=== PATIENT | male | born 1950 | race Caucasian/White ===

== ENCOUNTER 2017-05-16 14:34 | Inpatient (IN) | payer OTHER ==
[~2017-05-16] VITALS: Ht 170.2 cm; Wt 78.1 kg
[2017-05-16 15:24] LABS: BASOPHILS ABSOLUTE AUTO 0.04 K/mm3 (0.00-0.23); BASOPHILS PERCENT AUTO 0 % (0-2); EOSINOPHILS ABSOLUTE AUTO 0.13 K/mm3 (0.00-0.68); EOSINOPHILS PERCENT AUTO 1 % (0-6); Hematocrit 42.7 % (37.0-53.0); IMMATURE GRAN ABSOLUTE AUTO 0.12 K/mm3 (0.00-0.10); IMMATURE GRAN PERCENT AUTO 1 % (0-1); LYMPHOCYTES ABSOLUTE AUTO 0.92 K/mm3 (0.84-5.20); LYMPHOCYTES PERCENT AUTO 8 % (21-46); MONOCYTES ABSOLUTE AUTO 1.64 K/mm3 (0.16-1.47); MONOCYTES PERCENT AUTO 14 % (4-13); Mean Corpuscular HGB 31.1 pg (26.0-34.0); Mean Corpuscular HGB Conc 35.1 g/dL (31.5-36.5); Mean Corpuscular Volume 88 fL (80-100); Mean Platelet Volume 10.5 fL (9.1-12.4); NEUTROPHILS ABSOLUTE AUTO 9.08 K/mm3 (1.96-9.15); NEUTROPHILS PERCENT AUTO 76 % (41-73); Platelet Count 367 K/mm3 (150-400); RDW Coefficient Variation 11.9 % (11.7-14.2); Red Blood Cell Count 4.83 M/mm3 (4.30-5.90); White Blood Cell Count 11.93 K/mm3 (4.00-11.30)
[2017-05-16 15:56] LABS: Alanine Aminotransfer (ALT/SGP 22 U/L (12-78); Albumin, Blood 2.8 g/dL (3.4-5.0); Albumin/Globulin Ratio 0.6 (0.8-1.8); Alk Phos 53 U/L (50-136); Anion Gap 20 mmol/L (6-16); Aspartate Aminotrans (AST/SGOT 15 U/L (12-37); Bilirubin, Total 0.4 mg/dL (0.1-1.0); Blood Urea Nitrogen 208 mg/dL (8-24); Bun/Creatinine Ratio 17.3 (12.0-20.0); CO2, Blood 20 mmol/L (21-32); Calcium, Blood 12.5 mg/dL (8.5-10.1); Chloride, Blood 89 mmol/L (98-108); Globulin, Blood 4.4 g/dL (2.2-4.0); Glomerular Filtration Rate 4 (60-); Glucose, Blood 222 mg/dL (70-99); Potassium, Blood 4.2 mmol/L (3.5-5.5); Sodium, Blood 129 mmol/L (136-145); Total Protein, Blood 7.2 g/dL (6.4-8.2)
[2017-05-16 16:19] LABS: Phosphorus, Blood 6.7 mg/dL (2.5-4.9)
[2017-05-16 16:50] LABS: Source, Urine Clean Catch
[2017-05-16] MEDS ORDERED: ALLO300 PO (17:06)
[2017-05-16] MEDS ORDERED: ATOR20 PO (17:06)
[2017-05-16] MEDS ORDERED: Actos30 MG PO (17:06)
[2017-05-16] MEDS ORDERED: ASPI81CH PO (17:06)
[2017-05-16] MEDS ORDERED: LOSA50 PO (17:07)
[2017-05-16] MEDS ORDERED: GLIP10 PO (17:07)
[2017-05-16] MEDS ORDERED: SITA100T2 PO (17:07)
[2017-05-16] MEDS ORDERED: METF500 PO (17:08)
[2017-05-16 17:16] LABS: Appearance, Urine Clear (Clear); Bilirubin, Urine Neg (Neg); Blood, Urine 3+ (Neg); Color, Urine Yellow (P-Yellow); Glucose Qualitative, Urine 2+ (Neg); Ketones, Urine Neg (Neg); Leukocyte Esterase, Urine 1+ (Neg); Nitrite, Urine Neg (Neg); Protein, Urine 2+ (Neg); Urobilinogen, Urine NORM (Normal)
[2017-05-16 17:24] LABS: Chloride, Urine, Random 32 mmol/L (55-125); Sodium, Urine, Random 36 mmol/L (20-110)
[2017-05-16 17:40] LABS: Red Blood Cells, Urine 0-2 /hpf (0-2); White Blood Cells, Urine 0-2 /hpf (0-5)
[2017-05-16 17:41] LABS: Amorphous Mod (0-Heavy); Bacteria Not Seen /hpf; Squamous Epithelial Cells Not Seen /hpf (Few)
[2017-05-17 06:06] LABS: Hematocrit 39.4 % (37.0-53.0)
[2017-05-17 06:37] LABS: Magnesium, Blood 1.8 mg/dL (1.6-2.4); Uric Acid, Blood 13.3 mg/dL (3.5-7.2)
[2017-05-17 06:42] LABS: Cortisol, AM 29.2 ug/dL (6.7-22.6)
[2017-05-17 06:53] LABS: CPK Creatine Kinase 87 U/L (39-308); Thyroid Stimulating Hormone 0.564 uIU/mL (0.360-4.800)
[2017-05-17 07:08] LABS: Albumin, Blood 2.6 g/dL (3.4-5.0); Anion Gap 17 mmol/L (6-16); Blood Urea Nitrogen 197 mg/dL (8-24); Bun/Creatinine Ratio 16.7 (12.0-20.0); CO2, Blood 23 mmol/L (21-32); Calcium, Blood 10.8 mg/dL (8.5-10.1); Chloride, Blood 94 mmol/L (98-108); Glomerular Filtration Rate 5 (60-); Glucose, Blood 150 mg/dL (70-99); Phosphorus, Blood 5.1 mg/dL (2.5-4.9); Potassium, Blood 3.7 mmol/L (3.5-5.5); Sodium, Blood 134 mmol/L (136-145)
[2017-05-18 08:00] LABS: ANA Negative (NEG); Myeloperoxidase Antibody <0.2 AI (<1.0)
[2017-05-18 08:06] LABS: Magnesium, Blood 1.9 mg/dL (1.6-2.4)
[2017-05-18 08:44] LABS: Albumin, Blood 2.6 g/dL (3.4-5.0); Anion Gap 14 mmol/L (6-16); CO2, Blood 24 mmol/L (21-32); Chloride, Blood 98 mmol/L (98-108); Glucose, Blood 171 mg/dL (70-99); Phosphorus, Blood 4.5 mg/dL (2.5-4.9); Potassium, Blood 3.3 mmol/L (3.5-5.5); Sodium, Blood 136 mmol/L (136-145)
[2017-05-18 08:46] LABS: Blood Urea Nitrogen 182 mg/dL (8-24); Bun/Creatinine Ratio 16.9 (12.0-20.0); Glomerular Filtration Rate 5 (60-)
[2017-05-18 08:49] LABS: Calcium, Blood 9.6 mg/dL (8.5-10.1)
[2017-05-18 12:35] LABS: Albumin 2.7 g/dL (3.3-4.8); Albumin 47.2 % (45.0-80.0); Protein, Total 5.8 g/dL (6.1-7.8)
[2017-05-18 17:27] LABS: Protein, Urine Quantitative 21.3 mg/dL (0.0-11.9)
[2017-05-18 18:58] LABS: ANCA <1:20
[2017-05-19 06:07] LABS: Hematocrit 37.2 % (37.0-53.0); Hemoglobin 12.7 g/dL (13.5-17.5)
[2017-05-19 06:37] LABS: Magnesium, Blood 1.8 mg/dL (1.6-2.4)
[2017-05-19 07:15] LABS: Albumin, Blood 2.7 g/dL (3.4-5.0); Anion Gap 13 mmol/L (6-16); Blood Urea Nitrogen 166 mg/dL (8-24); Bun/Creatinine Ratio 17.5 (12.0-20.0); CO2, Blood 21 mmol/L (21-32); Calcium, Blood 8.8 mg/dL (8.5-10.1); Chloride, Blood 104 mmol/L (98-108); Creatinine, Blood 9.49 mg/dL (0.60-1.20); Glomerular Filtration Rate 6 (60-); Glucose, Blood 176 mg/dL (70-99); Phosphorus, Blood 3.9 mg/dL (2.5-4.9); Potassium, Blood 3.5 mmol/L (3.5-5.5); Sodium, Blood 138 mmol/L (136-145)
[2017-05-19 08:31] LABS: Albumin, Blood 2.5 g/dL (3.4-5.0); Anion Gap 12 mmol/L (6-16); Blood Urea Nitrogen 159 mg/dL (8-24); CO2, Blood 23 mmol/L (21-32); Calcium, Blood 8.8 mg/dL (8.5-10.1); Chloride, Blood 104 mmol/L (98-108); Creatinine, Blood 9.36 mg/dL (0.60-1.20); Glomerular Filtration Rate 6 (60-); Glucose, Blood 171 mg/dL (70-99); Phosphorus, Blood 3.9 mg/dL (2.5-4.9); Potassium, Blood 3.4 mmol/L (3.5-5.5); Sodium, Blood 139 mmol/L (136-145)
[2017-05-20 05:43] LABS: Hematocrit 37.7 % (37.0-53.0)
[2017-05-20 06:30] LABS: Magnesium, Blood 1.8 mg/dL (1.6-2.4)
[2017-05-20 06:55] LABS: Albumin, Blood 2.6 g/dL (3.4-5.0); Anion Gap 14 mmol/L (6-16); Blood Urea Nitrogen 142 mg/dL (8-24); Bun/Creatinine Ratio 17.5 (12.0-20.0); CO2, Blood 20 mmol/L (21-32); Calcium, Blood 8.6 mg/dL (8.5-10.1); Chloride, Blood 104 mmol/L (98-108); Glomerular Filtration Rate 7 (60-); Glucose, Blood 177 mg/dL (70-99); Phosphorus, Blood 3.8 mg/dL (2.5-4.9); Potassium, Blood 3.4 mmol/L (3.5-5.5); Sodium, Blood 138 mmol/L (136-145)
[2017-05-21 05:16] LABS: Hematocrit 34.7 % (37.0-53.0); Hemoglobin 11.8 g/dL (13.5-17.5)
[2017-05-21 05:40] LABS: Magnesium, Blood 1.7 mg/dL (1.6-2.4)
[2017-05-21 05:41] LABS: Albumin, Blood 2.4 g/dL (3.4-5.0); Anion Gap 13 mmol/L (6-16); Blood Urea Nitrogen 120 mg/dL (8-24); Bun/Creatinine Ratio 16.9 (12.0-20.0); CO2, Blood 19 mmol/L (21-32); Calcium, Blood 7.9 mg/dL (8.5-10.1); Chloride, Blood 106 mmol/L (98-108); Glomerular Filtration Rate 8 (60-); Glucose, Blood 141 mg/dL (70-99); Phosphorus, Blood 3.8 mg/dL (2.5-4.9); Potassium, Blood 3.4 mmol/L (3.5-5.5); Sodium, Blood 138 mmol/L (136-145)
[2017-05-21] MEDS ORDERED: ACET325 PO (11:45)
[2017-05-21] MEDS ORDERED: CLON.1 PO (11:46)
[2017-05-21] MEDS ORDERED: AMLO5 PO (11:46)
[2017-05-21] MEDS ORDERED: INSDET100 SC (11:47)
[2017-05-21] MEDS ORDERED: M930 ML PO (11:48)
[2017-05-21] MEDS ORDERED: FERSU220EL PO (11:49)
[2017-11-14] MEDS ORDERED: Hair, Skin & N1 EACH PO (20:01)
[2017-11-16] MEDS ORDERED: INSR10I SC (13:50)
[2017-11-16] MEDS ORDERED: INS70/30I SC (13:51)
== END 2017-05-21 20:30 | disposition home health service (06) | DRG 682 ==
LOC: ER 14:34 → MEDS 15:54
PROVIDERS: Emergency Medicine; Internal Medicine Nephrology
DX: N17.9 Acute kidney failure, unspecified (principal); G92 Toxic encephalopathy; E87.2 Acidosis; E11.22 Type 2 diabetes mellitus with diabetic chronic kidney disease; E83.52 Hypercalcemia; E87.1 Hypo-osmolality and hyponatremia; N18.3 Chronic kidney disease, stage 3 (moderate); I12.9 Hypertensive chronic kidney disease with stage 1 through stage 4 chronic kidney disease, or unspecified chronic kidney disease; E78.5 Hyperlipidemia, unspecified; E86.9 Volume depletion, unspecified; E87.6 Hypokalemia; E88.09 Other disorders of plasma-protein metabolism, not elsewhere classified; D63.1 Anemia in chronic kidney disease; R80.9 Proteinuria, unspecified; R31.29 Other microscopic hematuria; M10.9 Gout, unspecified; E78.00 Pure hypercholesterolemia, unspecified; Z79.84 Long term (current) use of oral hypoglycemic drugs; Z79.82 Long term (current) use of aspirin; Z79.899 Other long term (current) drug therapy
CPT/HCPCS: 36415; 76770; 80053; 80069; 81001; 81050; 82436; 82530; 82533; 82550; 82947; 83516; 83690; 83735; 83970; 84100; 84156; 84165; 84166; 84300; 84443; 84550; 85014; 85018; 85025; 86038; 86256; 86334; 96360; 97110; 97161; 97530; 99285; G8978; G8979; J0360; J1650; J1815; J7030

== ENCOUNTER → 2017-05-16 | Outpatient (CLI) | payer OTHER ==
[~2017-05-16] MED LIST: ACET325 PO; ALLO300 PO; AMLO10 PO; AMLO5 PO; ASPI81CH PO; ATOR20 PO; ATOR40TA PO; Actos30 MG PO; CALC.25 PO; CLON.1 PO; FERSU220EL PO; FURO40 PO; Ferrous Sulfat325 M2 PO; Ferrous Sulfat325 MG PO; GLIP10 PO; Hair, Skin & N1 EACH PO; INS70/30I SC; INSDET100 SC; INSR10I SC; LEVEMIR FL100 UNIT/1 SC; LOSA50 PO; M930 ML PO; METF500 PO; Novolog Fl100 UNIT/1 INJ; POTA10T PO; POTCIT10; SITA100T2 PO
[2017-05-16 12:28] LABS: BASOPHILS ABSOLUTE AUTO 0.06 K/mm3 (0.00-0.23); BASOPHILS PERCENT AUTO 1 % (0-2); EOSINOPHILS ABSOLUTE AUTO 0.18 K/mm3 (0.00-0.68); EOSINOPHILS PERCENT AUTO 2 % (0-6); Hematocrit 44.5 % (37.0-53.0); IMMATURE GRAN ABSOLUTE AUTO 0.16 K/mm3 (0.00-0.10); IMMATURE GRAN PERCENT AUTO 1 % (0-1); LYMPHOCYTES PERCENT AUTO 8 % (21-46); MONOCYTES ABSOLUTE AUTO 1.41 K/mm3 (0.16-1.47); MONOCYTES PERCENT AUTO 12 % (4-13); Mean Corpuscular HGB 31.6 pg (26.0-34.0); Mean Corpuscular Volume 88 fL (80-100); Mean Platelet Volume 10.9 fL (9.1-12.4); NEUTROPHILS ABSOLUTE AUTO 8.63 K/mm3 (1.96-9.15); NEUTROPHILS PERCENT AUTO 76 % (41-73); Platelet Count 381 K/mm3 (150-400); RDW Coefficient Variation 12.2 % (11.7-14.2); RDW Standard Deviation 38.6 fL (35.1-46.3); Red Blood Cell Count 5.07 M/mm3 (4.30-5.90); White Blood Cell Count 11.34 K/mm3 (4.00-11.30)
[2017-05-16 13:14] LABS: Albumin, Blood 3.2 g/dL (3.4-5.0); Albumin/Globulin Ratio 0.9 (0.8-1.8); Bilirubin, Total 0.6 mg/dL (0.1-1.0); Globulin, Blood 3.6 g/dL (2.2-4.0); Potassium, Blood 4.5 mmol/L (3.5-5.5); Total Protein, Blood 6.8 g/dL (6.4-8.2)
[2017-05-16 13:24] LABS: Bun/Creatinine Ratio 16.4 (12.0-20.0)
[2017-05-16 13:26] LABS: Calcium, Blood 14.1 mg/dL (8.5-10.1); Creatinine, Blood 13.63 mg/dL (0.60-1.20)
== END | disposition home or self-care (01) ==
LOC: LAB EV 12:22
PROVIDERS: Physician Assistant
DX: E11.9 Type 2 diabetes mellitus without complications (principal)
CPT/HCPCS: 80053; 85025

== ENCOUNTER → 2017-05-22 | Outpatient (CLI) | payer OTHER ==
[2017-05-22 15:07] LABS: BASOPHILS ABSOLUTE AUTO 0.09 K/mm3 (0.00-0.23); BASOPHILS PERCENT AUTO 1 % (0-2); EOSINOPHILS ABSOLUTE AUTO 0.55 K/mm3 (0.00-0.68); EOSINOPHILS PERCENT AUTO 4 % (0-6); Hemoglobin 11.8 g/dL (13.5-17.5); IMMATURE GRAN ABSOLUTE AUTO 0.11 K/mm3 (0.00-0.10); IMMATURE GRAN PERCENT AUTO 1 % (0-1); LYMPHOCYTES ABSOLUTE AUTO 1.25 K/mm3 (0.84-5.20); LYMPHOCYTES PERCENT AUTO 9 % (21-46); MONOCYTES ABSOLUTE AUTO 1.01 K/mm3 (0.16-1.47); MONOCYTES PERCENT AUTO 7 % (4-13); Mean Corpuscular HGB 30.8 pg (26.0-34.0); Mean Corpuscular HGB Conc 34.7 g/dL (31.5-36.5); Mean Corpuscular Volume 89 fL (80-100); Mean Platelet Volume 10.9 fL (9.1-12.4); NEUTROPHILS ABSOLUTE AUTO 10.71 K/mm3 (1.96-9.15); NEUTROPHILS PERCENT AUTO 78 % (41-73); Platelet Count 277 K/mm3 (150-400); RDW Coefficient Variation 12.1 % (11.7-14.2); RDW Standard Deviation 38.9 fL (35.1-46.3); Red Blood Cell Count 3.83 M/mm3 (4.30-5.90); White Blood Cell Count 13.72 K/mm3 (4.00-11.30)
[2017-05-22 15:42] LABS: Bun/Creatinine Ratio 15.7 (12.0-20.0); Calcium, Blood 7.2 mg/dL (8.5-10.1); Creatinine, Blood 6.36 mg/dL (0.60-1.20); Potassium, Blood 3.6 mmol/L (3.5-5.5)
== END ==
LOC: OLS 13:59 → LAB SHORT 13:59
PROVIDERS: Internal Medicine
DX: S37.001A Unspecified injury of right kidney, initial encounter (principal); I10 Essential (primary) hypertension; E11.00 Type 2 diabetes mellitus with hyperosmolarity without nonketotic hyperglycemic-hyperosmolar coma (NKHHC); E78.5 Hyperlipidemia, unspecified
CPT/HCPCS: 36415; 80048; 85025

== ENCOUNTER → 2017-05-24 | Outpatient (CLI) | payer OTHER ==
[2017-05-24 14:55] LABS: BASOPHILS ABSOLUTE AUTO 0.13 K/mm3 (0.00-0.23); BASOPHILS PERCENT AUTO 1 % (0-2); EOSINOPHILS ABSOLUTE AUTO 0.43 K/mm3 (0.00-0.68); EOSINOPHILS PERCENT AUTO 3 % (0-6); Hematocrit 33.2 % (37.0-53.0); Hemoglobin 11.7 g/dL (13.5-17.5); IMMATURE GRAN PERCENT AUTO 1 % (0-1); LYMPHOCYTES ABSOLUTE AUTO 1.44 K/mm3 (0.84-5.20); LYMPHOCYTES PERCENT AUTO 10 % (21-46); MONOCYTES ABSOLUTE AUTO 1.16 K/mm3 (0.16-1.47); MONOCYTES PERCENT AUTO 8 % (4-13); Mean Corpuscular HGB 31.5 pg (26.0-34.0); Mean Corpuscular HGB Conc 35.2 g/dL (31.5-36.5); Mean Corpuscular Volume 89 fL (80-100); Mean Platelet Volume 10.8 fL (9.1-12.4); NEUTROPHILS ABSOLUTE AUTO 10.96 K/mm3 (1.96-9.15); NEUTROPHILS PERCENT AUTO 77 % (41-73); Platelet Count 293 K/mm3 (150-400); RDW Coefficient Variation 12.3 % (11.7-14.2); RDW Standard Deviation 40.4 fL (35.1-46.3); Red Blood Cell Count 3.72 M/mm3 (4.30-5.90); White Blood Cell Count 14.22 K/mm3 (4.00-11.30)
[2017-05-24 15:16] LABS: Albumin, Blood 2.7 g/dL (3.4-5.0); Albumin/Globulin Ratio 0.8 (0.8-1.8); Bilirubin, Total 0.4 mg/dL (0.1-1.0); Bun/Creatinine Ratio 14.9 (12.0-20.0); Calcium, Blood 6.7 mg/dL (8.5-10.1); Creatinine, Blood 5.9 mg/dL (0.60-1.20); Globulin, Blood 3.3 g/dL (2.2-4.0); Potassium, Blood 3.5 mmol/L (3.5-5.5)
== END | disposition home or self-care (01) ==
LOC: LAB 14:18
PROVIDERS: Internal Medicine
DX: S37.001A Unspecified injury of right kidney, initial encounter (principal); E11.00 Type 2 diabetes mellitus with hyperosmolarity without nonketotic hyperglycemic-hyperosmolar coma (NKHHC); I10 Essential (primary) hypertension
CPT/HCPCS: 80053; 85025

== ENCOUNTER → 2017-05-26 | Outpatient (CLI) | payer OTHER ==
[2017-05-26 14:37] LABS: Bun/Creatinine Ratio 14.8 (12.0-20.0); Calcium, Blood 6.3 mg/dL (8.5-10.1); Creatinine, Blood 4.33 mg/dL (0.60-1.20); Potassium, Blood 3.7 mmol/L (3.5-5.5)
[2017-05-26 15:34] LABS: BASOPHILS ABSOLUTE AUTO 0.11 K/mm3 (0.00-0.23); BASOPHILS PERCENT AUTO 1 % (0-2); EOSINOPHILS ABSOLUTE AUTO 0.39 K/mm3 (0.00-0.68); EOSINOPHILS PERCENT AUTO 3 % (0-6); Hematocrit 31.8 % (37.0-53.0); IMMATURE GRAN ABSOLUTE AUTO 0.07 K/mm3 (0.00-0.10); IMMATURE GRAN PERCENT AUTO 1 % (0-1); LYMPHOCYTES PERCENT AUTO 13 % (21-46); MONOCYTES ABSOLUTE AUTO 1.18 K/mm3 (0.16-1.47); MONOCYTES PERCENT AUTO 10 % (4-13); Mean Corpuscular HGB 31.1 pg (26.0-34.0); Mean Corpuscular HGB Conc 34.6 g/dL (31.5-36.5); Mean Corpuscular Volume 90 fL (80-100); Mean Platelet Volume 10.3 fL (9.1-12.4); NEUTROPHILS ABSOLUTE AUTO 8.89 K/mm3 (1.96-9.15); NEUTROPHILS PERCENT AUTO 73 % (41-73); Platelet Count 299 K/mm3 (150-400); RDW Coefficient Variation 12.5 % (11.7-14.2); RDW Standard Deviation 41.5 fL (35.1-46.3); Red Blood Cell Count 3.54 M/mm3 (4.30-5.90); White Blood Cell Count 12.24 K/mm3 (4.00-11.30)
== END | disposition home or self-care (01) ==
LOC: LAB 14:14
PROVIDERS: Family Medicine
DX: N17.9 Acute kidney failure, unspecified (principal)
CPT/HCPCS: 80048; 85025

== ENCOUNTER 2017-08-22 17:56 | Inpatient (IN) | payer OTHER ==
[~2017-08-22] VITALS: Ht 175.3 cm; Wt 81.5 kg
[~2017-08-22 17:56] MED LIST changes: -AMLO10 PO; -ATOR40TA PO; -CALC.25 PO; -FURO40 PO; -Ferrous Sulfat325 M2 PO; -Ferrous Sulfat325 MG PO; -Hair, Skin & N1 EACH PO; -INS70/30I SC; -INSR10I SC; -LEVEMIR FL100 UNIT/1 SC; -Novolog Fl100 UNIT/1 INJ; -POTA10T PO; -POTCIT10
[2017-08-22 18:48] LABS: BASOPHILS ABSOLUTE AUTO 0.02 K/mm3 (0.00-0.23); BASOPHILS PERCENT AUTO 0 % (0-2); EOSINOPHILS PERCENT AUTO 0 % (0-6); Hematocrit 37.9 % (37.0-53.0); Hemoglobin 13.5 g/dL (13.5-17.5); IMMATURE GRAN ABSOLUTE AUTO 0.13 K/mm3 (0.00-0.10); IMMATURE GRAN PERCENT AUTO 1 % (0-1); LYMPHOCYTES PERCENT AUTO 7 % (21-46); MONOCYTES ABSOLUTE AUTO 1.47 K/mm3 (0.16-1.47); MONOCYTES PERCENT AUTO 8 % (4-13); Mean Corpuscular HGB 30.8 pg (26.0-34.0); Mean Corpuscular HGB Conc 35.6 g/dL (31.5-36.5); Mean Corpuscular Volume 87 fL (80-100); Mean Platelet Volume 10.1 fL (9.1-12.4); NEUTROPHILS ABSOLUTE AUTO 14.64 K/mm3 (1.96-9.15); NEUTROPHILS PERCENT AUTO 83 % (41-73); Platelet Count 434 K/mm3 (150-400); RDW Coefficient Variation 12.2 % (11.7-14.2); Red Blood Cell Count 4.38 M/mm3 (4.30-5.90); White Blood Cell Count 17.56 K/mm3 (4.00-11.30)
[2017-08-22 20:00] LABS: Ethanol (Alcohol), Blood, Med <3 mg/dL
[2017-08-22 20:24] LABS: Source, Urine Clean Catch
[2017-08-22 20:28] LABS: Appearance, Urine Clear (Clear); Bilirubin, Urine Neg (Neg); Blood, Urine 3+ (Neg); Color, Urine Yellow (P-Yellow); Glucose Qualitative, Urine 4+ (Neg); Ketones, Urine 2+ (Neg); Leukocyte Esterase, Urine Neg (Neg); Nitrite, Urine Neg (Neg); Protein, Urine 3+ (Neg); Urobilinogen, Urine NORM (Normal)
[2017-08-22 20:29] LABS: Alanine Aminotransfer (ALT/SGP 18 U/L (12-78); Albumin/Globulin Ratio 0.9 (0.8-1.8); Alk Phos 69 U/L (50-136); Anion Gap 12 mmol/L (6-16); Aspartate Aminotrans (AST/SGOT 17 U/L (12-37); Bilirubin, Total 0.8 mg/dL (0.1-1.0); Blood Urea Nitrogen 74 mg/dL (8-24); CO2, Blood 29 mmol/L (21-32); Calcium, Blood 13.6 mg/dL (8.5-10.1); Chloride, Blood 89 mmol/L (98-108); Creatinine, Blood 3.53 mg/dL (0.60-1.20); Globulin, Blood 4.7 g/dL (2.2-4.0); Glomerular Filtration Rate 18 (60-); Glucose, Blood 531 mg/dL (70-99); Sodium, Blood 130 mmol/L (136-145); Total Protein, Blood 8.7 g/dL (6.4-8.2)
[2017-08-22 20:35] LABS: Bacteria Rare /hpf; Squamous Epithelial Cells Rare /hpf (Few)
[2017-08-22 22:34] LABS: Free Thyroxine 1.27 ng/dL (0.70-1.60)
[2017-08-22 22:37] LABS: Thyroid Stimulating Hormone 0.847 uIU/mL (0.360-4.800); Triiodothyronine, Free 2.22 pg/mL (2.18-3.98)
[2017-08-22] MEDS ORDERED: Ferrous Sulfat325 MG PO (23:40)
[2017-08-23 01:59] LABS: U Amphetamine Screen Not Detected; U Barbituate Screen Not Detected; U Benzodiazapine Screen Not Detected; U Buprenorphine Screen Not Detected; U Cannabinoids Screen Not Detected; U Cocaine Screen Not Detected; U Methadone Screen Not Detected; U Methamphetamine Screen Not Detected; U Opiates Screen Not Detected; U Oxycodone Screen Not Detected; U Phencyclidine Screen Not Detected; U Propoxyphene Screen Not Detected
[2017-08-23 05:06] LABS: BASOPHILS ABSOLUTE AUTO 0.07 K/mm3 (0.00-0.23); BASOPHILS PERCENT AUTO 0 % (0-2); EOSINOPHILS ABSOLUTE AUTO 0.03 K/mm3 (0.00-0.68); EOSINOPHILS PERCENT AUTO 0 % (0-6); Hematocrit 36.2 % (37.0-53.0); Hemoglobin 12.5 g/dL (13.5-17.5); IMMATURE GRAN ABSOLUTE AUTO 0.11 K/mm3 (0.00-0.10); IMMATURE GRAN PERCENT AUTO 1 % (0-1); LYMPHOCYTES ABSOLUTE AUTO 1.32 K/mm3 (0.84-5.20); LYMPHOCYTES PERCENT AUTO 6 % (21-46); MONOCYTES ABSOLUTE AUTO 2.48 K/mm3 (0.16-1.47); MONOCYTES PERCENT AUTO 12 % (4-13); Mean Corpuscular HGB 30.4 pg (26.0-34.0); Mean Corpuscular HGB Conc 34.5 g/dL (31.5-36.5); Mean Corpuscular Volume 88 fL (80-100); Mean Platelet Volume 10.3 fL (9.1-12.4); NEUTROPHILS ABSOLUTE AUTO 16.71 K/mm3 (1.96-9.15); NEUTROPHILS PERCENT AUTO 81 % (41-73); Platelet Count 423 K/mm3 (150-400); RDW Coefficient Variation 12.3 % (11.7-14.2); RDW Standard Deviation 39.6 fL (35.1-46.3); Red Blood Cell Count 4.11 M/mm3 (4.30-5.90); White Blood Cell Count 20.72 K/mm3 (4.00-11.30)
[2017-08-23 05:21] LABS: Albumin, Blood 3.6 g/dL (3.4-5.0); Anion Gap 11 mmol/L (6-16); Blood Urea Nitrogen 73 mg/dL (8-24); Bun/Creatinine Ratio 21.4 (12.0-20.0); CO2, Blood 29 mmol/L (21-32); Calcium, Blood 12.2 mg/dL (8.5-10.1); Chloride, Blood 97 mmol/L (98-108); Creatinine, Blood 3.41 mg/dL (0.60-1.20); Glomerular Filtration Rate 19 (60-); Glucose, Blood 308 mg/dL (70-99); Phosphorus, Blood 2.4 mg/dL (2.5-4.9); Potassium, Blood 3.4 mmol/L (3.5-5.5); Sodium, Blood 137 mmol/L (136-145)
[2017-08-23] MEDS ORDERED: FURO40 PO (14:05)
[2017-08-23] MEDS ORDERED: POTA10T PO (14:05)
[2017-08-23] MEDS ORDERED: CALC.25 PO (14:06)
[2017-08-24 03:58] LABS: BASOPHILS ABSOLUTE AUTO 0.05 K/mm3 (0.00-0.23); BASOPHILS PERCENT AUTO 0 % (0-2); EOSINOPHILS ABSOLUTE AUTO 0.06 K/mm3 (0.00-0.68); EOSINOPHILS PERCENT AUTO 0 % (0-6); Hemoglobin 10.9 g/dL (13.5-17.5); IMMATURE GRAN ABSOLUTE AUTO 0.07 K/mm3 (0.00-0.10); IMMATURE GRAN PERCENT AUTO 1 % (0-1); LYMPHOCYTES ABSOLUTE AUTO 1.55 K/mm3 (0.84-5.20); LYMPHOCYTES PERCENT AUTO 11 % (21-46); MONOCYTES ABSOLUTE AUTO 1.53 K/mm3 (0.16-1.47); MONOCYTES PERCENT AUTO 11 % (4-13); Mean Corpuscular HGB 30.2 pg (26.0-34.0); Mean Corpuscular HGB Conc 34.1 g/dL (31.5-36.5); Mean Corpuscular Volume 89 fL (80-100); NEUTROPHILS ABSOLUTE AUTO 10.82 K/mm3 (1.96-9.15); NEUTROPHILS PERCENT AUTO 77 % (41-73); Platelet Count 330 K/mm3 (150-400); RDW Coefficient Variation 12.4 % (11.7-14.2); RDW Standard Deviation 39.8 fL (35.1-46.3); Red Blood Cell Count 3.61 M/mm3 (4.30-5.90); White Blood Cell Count 14.08 K/mm3 (4.00-11.30)
[2017-08-24 04:21] LABS: CPK Creatine Kinase 93 U/L (39-308); Magnesium, Blood 1.4 mg/dL (1.6-2.4); Uric Acid, Blood 11.1 mg/dL (3.5-7.2)
[2017-08-24 04:25] LABS: Cortisol, AM 24.4 ug/dL (6.7-22.6); Thyroid Stimulating Hormone 0.512 uIU/mL (0.360-4.800)
[2017-08-24 04:37] LABS: Alanine Aminotransfer (ALT/SGP 12 U/L (12-78); Albumin, Blood 2.8 g/dL (3.4-5.0); Albumin/Globulin Ratio 0.8 (0.8-1.8); Alk Phos 46 U/L (50-136); Anion Gap 7 mmol/L (6-16); Aspartate Aminotrans (AST/SGOT 12 U/L (12-37); Bilirubin, Total 0.3 mg/dL (0.1-1.0); Blood Urea Nitrogen 69 mg/dL (8-24); Bun/Creatinine Ratio 20.7 (12.0-20.0); CO2, Blood 27 mmol/L (21-32); Chloride, Blood 106 mmol/L (98-108); Creatinine, Blood 3.34 mg/dL (0.60-1.20); Globulin, Blood 3.6 g/dL (2.2-4.0); Glomerular Filtration Rate 20 (60-); Glucose, Blood 199 mg/dL (70-99); Phosphorus, Blood 2.5 mg/dL (2.5-4.9); Potassium, Blood 3.3 mmol/L (3.5-5.5); Sodium, Blood 140 mmol/L (136-145)
[2017-08-24 04:39] LABS: Calcium, Blood 9.6 mg/dL (8.5-10.1); Total Protein, Blood 6.4 g/dL (6.4-8.2)
[2017-08-24 11:18] LABS: PSA, %Free 45.3 %; PSA, Free 0.391 ng/mL; Prostate Specific Antigen 0.864 ng/mL (0.000-4.000)
[2017-08-24 19:04] LABS: Protein, Urine Quantitative 44.3 mg/dL (0.0-11.9)
[2017-08-25 03:51] LABS: BASOPHILS ABSOLUTE AUTO 0.09 K/mm3 (0.00-0.23); BASOPHILS PERCENT AUTO 1 % (0-2); EOSINOPHILS ABSOLUTE AUTO 0.38 K/mm3 (0.00-0.68); EOSINOPHILS PERCENT AUTO 4 % (0-6); Hematocrit 30.2 % (37.0-53.0); Hemoglobin 10.4 g/dL (13.5-17.5); IMMATURE GRAN ABSOLUTE AUTO 0.04 K/mm3 (0.00-0.10); IMMATURE GRAN PERCENT AUTO 0 % (0-1); LYMPHOCYTES ABSOLUTE AUTO 2.12 K/mm3 (0.84-5.20); LYMPHOCYTES PERCENT AUTO 20 % (21-46); MONOCYTES ABSOLUTE AUTO 1.08 K/mm3 (0.16-1.47); MONOCYTES PERCENT AUTO 10 % (4-13); Mean Corpuscular HGB 30.4 pg (26.0-34.0); Mean Corpuscular HGB Conc 34.4 g/dL (31.5-36.5); Mean Corpuscular Volume 88 fL (80-100); Mean Platelet Volume 10.1 fL (9.1-12.4); NEUTROPHILS ABSOLUTE AUTO 6.87 K/mm3 (1.96-9.15); NEUTROPHILS PERCENT AUTO 65 % (41-73); Platelet Count 307 K/mm3 (150-400); RDW Coefficient Variation 12.4 % (11.7-14.2); RDW Standard Deviation 40.2 fL (35.1-46.3); Red Blood Cell Count 3.42 M/mm3 (4.30-5.90); White Blood Cell Count 10.58 K/mm3 (4.00-11.30)
[2017-08-25 04:09] LABS: Alanine Aminotransfer (ALT/SGP 13 U/L (12-78); Albumin, Blood 2.6 g/dL (3.4-5.0); Albumin/Globulin Ratio 0.7 (0.8-1.8); Alk Phos 42 U/L (50-136); Anion Gap 7 mmol/L (6-16); Aspartate Aminotrans (AST/SGOT 14 U/L (12-37); Bilirubin, Total 0.4 mg/dL (0.1-1.0); Blood Urea Nitrogen 63 mg/dL (8-24); Bun/Creatinine Ratio 19.7 (12.0-20.0); CO2, Blood 25 mmol/L (21-32); Calcium, Blood 8.5 mg/dL (8.5-10.1); Chloride, Blood 107 mmol/L (98-108); Creatinine, Blood 3.19 mg/dL (0.60-1.20); Globulin, Blood 3.5 g/dL (2.2-4.0); Glomerular Filtration Rate 21 (60-); Glucose, Blood 151 mg/dL (70-99); Magnesium, Blood 1.6 mg/dL (1.6-2.4); Phosphorus, Blood 2.7 mg/dL (2.5-4.9); Potassium, Blood 3.2 mmol/L (3.5-5.5); Sodium, Blood 139 mmol/L (136-145); Total Protein, Blood 6.1 g/dL (6.4-8.2)
[2017-08-26 04:44] LABS: Hematocrit 28.2 % (37.0-53.0); Hemoglobin 9.7 g/dL (13.5-17.5)
[2017-08-26 05:01] LABS: Albumin, Blood 2.5 g/dL (3.4-5.0); Anion Gap 10 mmol/L (6-16); Blood Urea Nitrogen 65 mg/dL (8-24); Bun/Creatinine Ratio 20.4 (12.0-20.0); CO2, Blood 22 mmol/L (21-32); Calcium, Blood 8.4 mg/dL (8.5-10.1); Chloride, Blood 107 mmol/L (98-108); Creatinine, Blood 3.19 mg/dL (0.60-1.20); Glomerular Filtration Rate 21 (60-); Glucose, Blood 164 mg/dL (70-99); Magnesium, Blood 1.6 mg/dL (1.6-2.4); Phosphorus, Blood 2.4 mg/dL (2.5-4.9); Potassium, Blood 3.5 mmol/L (3.5-5.5); Sodium, Blood 139 mmol/L (136-145)
[2017-08-26] MEDS ORDERED: ASPI81CH PO (13:59)
[2017-08-26] MEDS ORDERED: ATOR40TA PO (14:00)
[2017-08-26] MEDS ORDERED: Novolog Fl100 UNIT/1 INJ ×2 (14:04→14:07)
[2017-08-26] MEDS ORDERED: LEVEMIR FL100 UNIT/1 SC (14:05)
[2017-08-28 16:07] LABS: A/G RATIO 1.1 (0.7-1.7); ALBUMIN 3.1 g/dL (2.9-4.4); ALPHA-1-GLOBULIN 0.2 g/dL (0.0-0.4); BETA GLOBULIN 0.9 g/dL (0.7-1.3); GAMMA GLOBULIN 0.9 g/dL (0.4-1.8); IMMUNOGLOBULIN A, QN, SERUM 301 mg/dL (61-437); IMMUNOGLOBULIN G, QN, SERUM 709 mg/dL (700-1600); IMMUNOGLOBULIN M, QN, SERUM 31 mg/dL (20-172); M-SPIKE Not Observed g/dL (Not Observed); PROTEIN, TOTAL, SERUM 6.1 g/dL (6.0-8.5)
[2017-08-28 23:10] LABS: ANGIOTENSIN-CONVERTING ENZYME 31 U/L (14-82)
[2017-09-04 10:08] LABS: ANA DIRECT Negative (Negative); ANTIMYELOPEROXIDASE (MPO) ABS <9.0 U/mL (0.0-9.0); ANTIPROTEINASE 3 (PR-3) ABS <3.5 U/mL (0.0-3.5); ATYPICAL PANCA <1:20 titer (Neg:<1:20); CYTOPLASMIC (C-ANCA) <1:20 titer (Neg:<1:20); PERINUCLEAR (P-ANCA) <1:20 titer (Neg:<1:20)
== END 2017-08-26 14:35 | disposition home or self-care (01) | DRG 640 ==
LOC: ER 17:56 → MEDS 21:56 → ICUE 23:05 → MEDS 23:10 → ICUE 08-23 19:00 → MEDS 08-24 15:02 → ENPENDDIS 08-26 12:00 → MEDS 08-26 14:35
PROVIDERS: Emergency Medicine; Family Medicine; Internal Medicine Nephrology
DX: E83.52 Hypercalcemia (principal); G93.41 Metabolic encephalopathy; N39.0 Urinary tract infection, site not specified; N17.9 Acute kidney failure, unspecified; N18.4 Chronic kidney disease, stage 4 (severe); E11.9 Type 2 diabetes mellitus without complications; Z79.4 Long term (current) use of insulin; I12.9 Hypertensive chronic kidney disease with stage 1 through stage 4 chronic kidney disease, or unspecified chronic kidney disease; E11.22 Type 2 diabetes mellitus with diabetic chronic kidney disease; E87.6 Hypokalemia; E83.42 Hypomagnesemia; D63.1 Anemia in chronic kidney disease
CPT/HCPCS: 36415; 70450; 71046; 76770; 80053; 80069; 81001; 81050; 82140; 82164; 82306; 82533; 82550; 82784; 82947; 83036; 83605; 83690; 83735; 83970; 84100; 84153; 84154; 84156; 84165; 84439; 84443; 84481; 84550; 85014; 85018; 85025; 86038; 86334; 87040; 87086; 93005; 93010; 96361; 96374; 97116; 97161; 99285; G0480; G8978; G8979; G8980; J0360; J0630; J0696; J0881; J1815; J2405; J3475; J7030; J7050; J7060

== ENCOUNTER 2017-11-24 19:39 | Emergency (ER) | payer OTHER ==
[~2017-11-24] VITALS: Ht 170.2 cm; Wt 72.6 kg
[~2017-11-24 19:39] MED LIST changes: +ATOR40TA PO; +CALC.25 PO; +FURO40 PO; +Ferrous Sulfat325 MG PO; +Hair, Skin & N1 EACH PO; +INS70/30I SC; +INSR10I SC; +LEVEMIR FL100 UNIT/1 SC; +Novolog Fl100 UNIT/1 INJ; +POTA10T PO
[2017-11-24] MEDS ORDERED: CALC.25 PO (20:03)
[2017-11-24] MEDS ORDERED: Ferrous Sulfat325 M2 PO (20:04)
[2017-11-24] MEDS ORDERED: POTCIT10 (20:06)
[2017-11-24] MEDS ORDERED: AMLO10 PO (20:08)
[2017-11-24] MEDS ORDERED: FURO40 PO (20:09)
[2017-11-24 20:33] LABS: BASOPHILS PERCENT AUTO 1 % (0-2); EOSINOPHILS ABSOLUTE AUTO 0.28 K/mm3 (0.00-0.68); EOSINOPHILS PERCENT AUTO 3 % (0-6); Hematocrit 36.4 % (37.0-53.0); Hemoglobin 12.2 g/dL (13.5-17.5); IMMATURE GRAN ABSOLUTE AUTO 0.06 K/mm3 (0.00-0.10); IMMATURE GRAN PERCENT AUTO 1 % (0-1); LYMPHOCYTES ABSOLUTE AUTO 1.76 K/mm3 (0.84-5.20); LYMPHOCYTES PERCENT AUTO 16 % (21-46); MONOCYTES ABSOLUTE AUTO 1.07 K/mm3 (0.16-1.47); MONOCYTES PERCENT AUTO 9 % (4-13); Mean Corpuscular HGB 28.9 pg (26.0-34.0); Mean Corpuscular HGB Conc 33.5 g/dL (31.5-36.5); Mean Corpuscular Volume 86 fL (80-100); NEUTROPHILS ABSOLUTE AUTO 8.09 K/mm3 (1.96-9.15); NEUTROPHILS PERCENT AUTO 71 % (41-73); Platelet Count 278 K/mm3 (150-400); RDW Coefficient Variation 12.3 % (11.7-14.2); RDW Standard Deviation 38.9 fL (35.1-46.3); Red Blood Cell Count 4.22 M/mm3 (4.30-5.90); White Blood Cell Count 11.36 K/mm3 (4.00-11.30)
[2017-11-24 20:53] LABS: Albumin, Blood 3.2 g/dL (3.4-5.0); Albumin/Globulin Ratio 0.8 (0.8-1.8); Bilirubin, Total 0.2 mg/dL (0.1-1.0); Bun/Creatinine Ratio 28.2 (12.0-20.0); Calcium, Blood 8.6 mg/dL (8.5-10.1); Creatinine, Blood 2.55 mg/dL (0.60-1.20); Globulin, Blood 4.2 g/dL (2.2-4.0); Potassium, Blood 4.6 mmol/L (3.5-5.5); Total Protein, Blood 7.4 g/dL (6.4-8.2)
[2017-11-24 21:11] LABS: Source, Urine Clean Catch
[2017-11-24 21:13] LABS: Bilirubin, Urine Neg (Neg); Blood, Urine 2+ (Neg); Glucose Qualitative, Urine 4+ (Neg); Ketones, Urine Neg (Neg); Leukocyte Esterase, Urine Neg (Neg); Nitrite, Urine Neg (Neg); Protein, Urine 3+ (Neg); Urobilinogen, Urine NORM (Normal)
[2017-11-24 21:22] LABS: Appearance, Urine Clear (Clear); Color, Urine Yellow (P-Yellow)
[2017-11-24 21:23] LABS: Bacteria Few /hpf; Red Blood Cells, Urine 0-2 /hpf (0-2); Squamous Epithelial Cells Not Seen /hpf (Few); White Blood Cells, Urine 0-2 /hpf (0-5)
== END 2017-11-25 00:34 | disposition home or self-care (01) ==
LOC: ER 19:39
PROVIDERS: Emergency Medicine
DX: I12.9 Hypertensive chronic kidney disease with stage 1 through stage 4 chronic kidney disease, or unspecified chronic kidney disease (principal); E11.22 Type 2 diabetes mellitus with diabetic chronic kidney disease; N18.9 Chronic kidney disease, unspecified; E11.65 Type 2 diabetes mellitus with hyperglycemia; Z79.899 Other long term (current) drug therapy; Z79.82 Long term (current) use of aspirin; Z79.4 Long term (current) use of insulin
CPT/HCPCS: 36415; 80053; 81001; 82947; 85025; 93005; 93010; 96361; 96374; 99285-25; J1815; J7030

== ENCOUNTER 2017-12-18 11:36 | Emergency (ER) | payer OTHER ==
[~2017-12-18] VITALS: Ht 167.6 cm; Wt 74.8 kg
[~2017-12-18 11:36] MED LIST changes: +AMLO10 PO; +Ferrous Sulfat325 M2 PO; +POTCIT10
[2017-12-18 12:22] LABS: BASOPHILS ABSOLUTE AUTO 0.13 K/mm3 (0.00-0.23); BASOPHILS PERCENT AUTO 1 % (0-2); EOSINOPHILS ABSOLUTE AUTO 0.12 K/mm3 (0.00-0.68); EOSINOPHILS PERCENT AUTO 1 % (0-6); Hematocrit 39.4 % (37.0-53.0); Hemoglobin 13.3 g/dL (13.5-17.5); IMMATURE GRAN ABSOLUTE AUTO 0.08 K/mm3 (0.00-0.10); IMMATURE GRAN PERCENT AUTO 1 % (0-1); LYMPHOCYTES ABSOLUTE AUTO 1.35 K/mm3 (0.84-5.20); LYMPHOCYTES PERCENT AUTO 10 % (21-46); MONOCYTES ABSOLUTE AUTO 0.93 K/mm3 (0.16-1.47); MONOCYTES PERCENT AUTO 7 % (4-13); Mean Corpuscular HGB 29.3 pg (26.0-34.0); Mean Corpuscular HGB Conc 33.8 g/dL (31.5-36.5); Mean Corpuscular Volume 87 fL (80-100); Mean Platelet Volume 9.8 fL (9.1-12.4); NEUTROPHILS ABSOLUTE AUTO 11.65 K/mm3 (1.96-9.15); NEUTROPHILS PERCENT AUTO 82 % (41-73); Platelet Count 366 K/mm3 (150-400); RDW Coefficient Variation 12.6 % (11.7-14.2); RDW Standard Deviation 40.1 fL (35.1-46.3); Red Blood Cell Count 4.54 M/mm3 (4.30-5.90); White Blood Cell Count 14.26 K/mm3 (4.00-11.30)
[2017-12-18 12:42] LABS: Alanine Aminotransfer (ALT/SGP 47 U/L (12-78); Albumin/Globulin Ratio 0.8 (0.8-1.8); Alk Phos 74 U/L (50-136); Anion Gap 11 mmol/L (6-16); Aspartate Aminotrans (AST/SGOT 27 U/L (12-37); Bilirubin, Total 0.6 mg/dL (0.1-1.0); Blood Urea Nitrogen 45 mg/dL (8-24); Bun/Creatinine Ratio 19.2 (12.0-20.0); CO2, Blood 25 mmol/L (21-32); Calcium, Blood 12.4 mg/dL (8.5-10.1); Chloride, Blood 93 mmol/L (98-108); Creatinine, Blood 2.34 mg/dL (0.60-1.20); Globulin, Blood 4.9 g/dL (2.2-4.0); Glomerular Filtration Rate 29 (60-); Glucose, Blood 443 mg/dL (70-99); Potassium, Blood 4.7 mmol/L (3.5-5.5); Sodium, Blood 129 mmol/L (136-145); Total Protein, Blood 8.9 g/dL (6.4-8.2); Troponin I <0.015 ng/mL (0.000-0.040)
[2017-12-18 13:05] LABS: Calcium, Ionized (POC) 1.32 mmol/L (1.10-1.46); Chloride (POC) 96 mmol/L (98-108); Creatinine (POC) 2.3 mg/dL (0.8-1.3); Glucose (ISTAT POC) 443 mg/dL (70-99); Hemoglobin (POC) 13.3 g/dL (13.5-17.5); Potassium (POC) 4.8 mmol/L (3.5-5.5); Sodium (POC) 132 mmol/L (135-148); Total CO2 (POC) 27 mmol/L (21-32)
== END 2017-12-18 17:30 | disposition home or self-care (01) ==
LOC: ER 11:36
PROVIDERS: Emergency Medicine
DX: I10 Essential (primary) hypertension (principal); E11.9 Type 2 diabetes mellitus without complications; Z79.899 Other long term (current) drug therapy; Z79.82 Long term (current) use of aspirin; Z79.4 Long term (current) use of insulin
CPT/HCPCS: 36415; 74022; 80047; 80053; 82947; 83690; 84484; 85014; 85025; 93005; 93010; 96361; 96374; 99284-25; J2405; J7030

== ENCOUNTER 2018-04-17 14:50 | Inpatient (IN) | payer OTHER ==
[~2018-04-17] VITALS: Ht 170.2 cm; Wt 74.8 kg
--- NOTE | 2018-04-17 15:55 | NUR ---
PATIENT ARRIVES ABOUT 1500 VIA W/C. IV PLACED WITH LAB DRAW FOR KANCHAN. PATIENT HAS DIFFICULTY CONTROLLING MOVEMENT OF RT ARM. TOUCHES NOSE AFTER THIRD TRY WITH RT ARM. DRAFTER DETAIL FAIRLY EQUAL AND IS LEFT HAND DOMINANT. APEEARS TO HAVE TO THINK FOR AWHILE BEFORE ANSWERING QUESTIONS. DR. KYLE NOTIFIED OF PATIENT ROOM AND HE WILL WRITE ORDERS. RT ARM DRIFT. UNSTEADY ON FEET. WILL CONTINUE TO MONITOR.
--- NOTE | 2018-04-17 16:39 | NUR ---
PATIENT SLEEPING WITH TV ON. WAITING FOR .
[2018-04-17] MEDS ORDERED: TRADJENTA5 MG PO (16:47)
[2018-04-17] MEDS ORDERED: BASAGLAR K100 UNIT/1 SC (16:48)
[2018-04-17 17:26] LABS: BASOPHILS ABSOLUTE AUTO 0.17 K/mm3 (0.00-0.23); BASOPHILS PERCENT AUTO 1 % (0-2); EOSINOPHILS ABSOLUTE AUTO 0.35 K/mm3 (0.00-0.68); EOSINOPHILS PERCENT AUTO 3 % (0-6); Hematocrit 38.9 % (37.0-53.0); Hemoglobin 13.4 g/dL (13.5-17.5); IMMATURE GRAN ABSOLUTE AUTO 0.06 K/mm3 (0.00-0.10); IMMATURE GRAN PERCENT AUTO 1 % (0-1); LYMPHOCYTES ABSOLUTE AUTO 1.88 K/mm3 (0.84-5.20); LYMPHOCYTES PERCENT AUTO 15 % (21-46); MONOCYTES ABSOLUTE AUTO 1.14 K/mm3 (0.16-1.47); MONOCYTES PERCENT AUTO 9 % (4-13); Mean Corpuscular HGB 31.4 pg (26.0-34.0); Mean Corpuscular HGB Conc 34.4 g/dL (31.5-36.5); Mean Corpuscular Volume 91 fL (80-100); Mean Platelet Volume 10.6 fL (9.1-12.4); NEUTROPHILS ABSOLUTE AUTO 8.62 K/mm3 (1.96-9.15); NEUTROPHILS PERCENT AUTO 71 % (41-73); Platelet Count 346 K/mm3 (150-400); RDW Coefficient Variation 11.9 % (11.7-14.2); RDW Standard Deviation 39.7 fL (35.1-46.3); Red Blood Cell Count 4.27 M/mm3 (4.30-5.90); White Blood Cell Count 12.22 K/mm3 (4.00-11.30)
[2018-04-17 17:42] LABS: C-REACTIVE PROTEIN, EXT RANGE 0.55 mg/dL (0.000-0.300)
[2018-04-17 17:53] LABS: Albumin, Blood 3.9 g/dL (3.4-5.0); Albumin/Globulin Ratio 0.9 (0.8-1.8); Bilirubin, Total 0.4 mg/dL (0.1-1.0); Bun/Creatinine Ratio 19.8 (12.0-20.0); Creatinine, Blood 2.37 mg/dL (0.60-1.20); Globulin, Blood 4.4 g/dL (2.2-4.0); Potassium, Blood 4.3 mmol/L (3.5-5.5); Total Protein, Blood 8.3 g/dL (6.4-8.2)
--- NOTE | 2018-04-17 18:31 | NUR ---
PATIENT ALERT AND ORIENTED. DID NOT SEE RT SIDED FACIAL DROOP, BUT WHEN PATIENT STICKS OUT TONGUE APPEARS TO DEVIATE TO RT. PATIENT HAS HARD TIME HOLDING TONGUE STILL. PUSH/PULL FEET APPEAR EQUAL. 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 PATIENT HAS DIFFICULT TIME HOLDING RT ARM STILL. AND SAW PATIENT. BED ALARM ON AND PATIENT IS AWARE. BED IN LOW POSITION. WILL CONTINUE TO MONITOR.
--- NOTE | 2018-04-18 05:08 | NUR ---
SHIFT SUMMARY PT ADMITTED FOR CVA WITH R SIDE JENNIFFER-PARESIS. FULL CODE. ADA-PUREE DIET WITH CBG AT AND HAS. PT IS AWAITING AN ST EVAL AND BREAKFAST IS CHANGED IN ORDERS TO SOFT-BITE SIZED WHICH MAY NEED CHANGED DEPENDING OF EVAL RESULTS AND/OR ABILITY TO PERFORM EVAL PRIOR TO TRAY COMING FOR PT. TELE-NSR AT A RATE OF 85 PER SENIOR CORPORATE RECRUITER. LOVENOX FOR DVT. NS AT 150 MLS/HR X1 THEN 100 MLS/HR X1. 20 G IV TO L FA. WOUND TO L BUTTOCK IS SCAB CALDERON WITH REDNESS NOTED TO SURROUNDING BUTTOCKS. PT PRESENTED TO [facility] AFTER NOTICING THAT HE WAS HAVING DIFFICULTY EXPRESSING HIMSELF AND CORDINATING THE R SIDE OF HIS BODY. THE PT HAS NO FAMILY IN TOWN AND DROVE HIMSELF TO URGENT CARE SO HIS CAR REMAINS AT [facility] PER REPORT. 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 PT ALSO NOTED TO HAVE R FACIAL DROOP WHICH PERSISTS HERE NOW. THE PT LIVES AT HOME ALONE AND WAS NOT SAFE TO RETURN AT THIS TIME, WHICH IS PART OF THE REASON FOR ADMIT. PT TOOK 1 SMALL MEDICATION SO FAR THIS SHIFT, ADMINISTERED WITH APPLESAUCE AND PT APPEARED TO TOLLERATED WELL. EVALUATED ABILITY TO SWALLOW WITH LATE DINNER TRAY AND PT APPEARED TO PRESENT NO DIFFICULTY WITH PUREE FOODS. PT HAS APPEARED TO SLEEP COMFORTABLY MOST OF THE NIGHT WITH NO APPARENT SIGNS OF ACUTE DISTRESS. ABLE TO MAKE NEEDS KNOWN AND CALL LIGHT IN REACH.
[2018-04-18 05:39] LABS: Bun/Creatinine Ratio 19.9 (12.0-20.0); Creatinine, Blood 2.41 mg/dL (0.60-1.20); Potassium, Blood 4.5 mmol/L (3.5-5.5)
--- NOTE | 2018-04-18 07:26 | NUR ---
CAN NOT REALLY TELL IF RT SIDED FACIAL DROOP. TONGUE DOES NOT DEVIATE. RT YEAST WASHER LITTLE WEAKER THAN LEFT. CAN TOUCH NOSE W/RT HAND W/ EYES CLOSED. CAN LIFT LEGS ONE AT A TIME FROM BED WHILE LYING DOWN, BUT STS RT LEG IS HARDER TO DO. EQUAL PUSH, PULL. NON SLURRED SPEECH, BUT WORDS SOUND "THICK TONGUED". PATIENT SLOW RESPOND HE HAS TO "THINK ABOUT WORDS." WILL CONTINUE TO MONITOR.
--- NOTE | 2018-04-18 10:25 | NUR ---
NOTIFIED PATIENT SEMI RESPONSIVE. DOES NOT RESPOND TO HARD STERNAL RUB. RESPOND TO LOUD COMMANDS. V.S. GOOD. BLD SUGAR OK, UNDER 400. MRI SCHEDULED FOR ABOUT 1030. P.T. AND O.T. WORKED W/PATIENT THIS A.M. AND POSSIBLY OVER WORKED. NO NEW ORDERS.
--- NOTE | 2018-04-18 11:00 | NUR ---
PATIENT MOVED BACK TO BED. RESPONDS TO VOICE. DOES NOT KNOW WHAT BUILDING HE IS IN. KNOWS HE LIVES IN [place]. DOES NOT DO CONSTANT YARDER ENGINEER WITH EITHER HAND WHEN TOLD TO SQUEEZE MY FINGERS AND HOLD IT. CAN NOT SMILE. WHEN ASKED TO STICK TONGUE OUT STRAIGHT DEVIATES TO RT THEN TO LEFT. BOTH ARMS DRIFT WHEN HOLDING OUT STRAIGHT. IS ABLE TO TOUCH NOSE WITH LEFT HAND PRETTY EASILY, BUT TAKES A LITTLE MORE CONCENTRATION WITH RT BUT DOES IT FIRST TRY. MONITOR ON AND SR PER TECH. WILL CONTINUE TO MONITOR.
--- NOTE | 2018-04-18 11:09 | NUR ---
LEFT MESSAGE ON VOICE MAIL COULD NOT DO MRI PATIENT BECAME COMBATIVE WHEN MACHINE STARTED UP AND PATIENT MORE CONFUSED AT THIS TIME.
--- NOTE | 2018-04-18 13:11 | NUR ---
MRI REFUSED TO DO TEST WITHOUT MEDICATION WHEN THEY ATTEMPTED TO DO MRI AT 1100 PATIENT WAS BANGING AGAINST TUBE WHEN MACHINE WAS TURNED ON. NOTIFIED AND ORDERS 1/2 MG ATIVAN IV ONE TIME.
--- NOTE | 2018-04-18 13:41 | NUR ---
RN WATCHING PATIENT WHILE ON BREAK STS PATIENT HAS BEEN TRYING TO GET UP. WHEN THIS RN GOES IN PATIENT WITH LEGS ON SIDE OF BED. STS "DON'T KNOW WHY " WHEN ASKED WHY IS HE TRYING TO GET UP.WHEN PATIENT LAYS BACK DOWN AND SHUTS EYES APPEARS TO HAVE DEFINATE RT SIDED DROOP.
--- NOTE | 2018-04-18 15:10 | NUR ---
TALKED TO ABOUT PATIENT, MRI CANCELLED ORDER PATIENT ALMOST BROKE EQUIPMENT AND WAS VERY COMBATIVE, WRIST RESTRAINTS AND SPRING ON AND PATIENT COMBATIVE. CBG 163. 160/119-100. SATS 97%. ORDER FOR RESTRAINTS RECEIVED. LAB ORDER BMP. MD WILL THINK ABOUT OTHER ORDERS SUCH HALDOL IV. PATIENT TRANSFER TO SPECIAL CARE UNIT.
--- NOTE | 2018-04-18 15:45 | NUR ---
REPORT GIVEN TO SAEID LEBRON AND PATIENT MOVED TO ROOM 350. LAB DRAWN.
[2018-04-18 15:49] LABS: Bun/Creatinine Ratio 19.8 (12.0-20.0); Creatinine, Blood 2.47 mg/dL (0.60-1.20); Potassium, Blood 3.7 mmol/L (3.5-5.5)
--- NOTE | 2018-04-18 18:36 | NUR ---
SUMMARY PT TRANSFER TO SCU @ 1530 FROM RM 308. HE IS DROWSY/SLEEPY ON ARRIVAL TO . IN SPRING & WRIST RESTRAINTS. REPORT THAT HE HAD BEEN GETTING UP W/O ASSIST, HIGH FALL RISK D/T R SIDED DEFICITS, DX CVA, HITTING STAFF. CT HEAD WAS NEGATIVE, DR KYLE WANTED MRI TO CONFIRM DX HOWEVER PT WAS UNABLE TO TOLERATE INSPITE OF SEDATIVES. @ THIS TIME PT AROUSES TO VERBAL/NAME. HE SPEAKS IN COHERENT PHRASES HOWEVER REPEATS HIMSELF OVER & OVER. STATE NO PAIN, NO N/T. TORCH SOLDERER ARE STRONG BILAT, HE DOES NOT FOLLOW ALL COMMANDS @ THIS TIME D/T DROWSINESS, DIFFICULT TO COMPLETE NEURO EVAL. PT VERBALLY STATE HE WILL NOT HIT STAFF, WILL MX IN ATTEMPT TO D/C RESTRAINTS. BLOOD SUGAR 184, S/S & SCEDULED W MEALS INSULIN HELD D/T NPO STATUS. PT BROTHER ROB CALL FROM [place], UPDATED ON EVENT/TX, STATE HE WILL DRIVE DOWN TOMORROW.
--- NOTE | 2018-04-19 04:23 | NUR ---
SHIFT SUMMARY PT DROWSY AT START OF SHIFT. SLEPT WELL FOR SEVERAL HOURS. ONCE AWAKE PT VERY AGITATED. VERY UPSET ABOUT HAVING RESTRAINTS ON. ATTEMPTED TO TRIAL SEVERAL TIMES REMOVING THE WRIST RESTRAINTS AND PT PULLING OFF SPRING, ATTEMPTING TO GET OUT OF BED, AND PULLING OFF TELEMETRY UNIT. PT PULLING SO HARD ON SPRING VEST THAT FABRIC IS BEGINNING THE RIP. MEDICATED FIRST W/ 1 MG HALDOL ORDERED. MEDICATION HAD NO EFFECT ON PT. NOTIFIED DR. APODACA, NIGHTTIME HOSPITALIST AND GOT A ONE TIME DOSE FOR 1 MG IV ATIVAN. PT FINALLY ABLE TO CALM DOWN AND SLEEP AFTER ATIVAN WAS GIVEN. TELE READING SINUS TACH 101 PT CONTINENT/INCONTINENT THIS EVENING. USED THE URINAL SEVERAL TIMES. PT SLEEPING AT THIS TIME. VSS. WILL CONTINUE TO MONITOR.
[2018-04-19 05:23] LABS: Bun/Creatinine Ratio 19.9 (12.0-20.0); Calcium, Blood 9.5 mg/dL (8.5-10.1); Creatinine, Blood 2.41 mg/dL (0.60-1.20); Potassium, Blood 3.7 mmol/L (3.5-5.5)
--- NOTE | 2018-04-19 11:31 | NUR ---
AM BLOOD SUGAR LOW AT 74. DID NOT EAT MUCH. NO INSULIN GIVEN. NOON BLOOD SUGAR LOWER AT 64. PT STILL TALKING AND SWALLOWING. GAVE HONEY PACKET, APPLE JUICE. NOW WORKING ON ENSURE FROZEN YOGURT. WILL FOLLOW.
--- NOTE | 2018-04-19 17:20 | NUR ---
PT PLEASANTLY CONFUSED. ABLE TO TALK ABOUT SELF AND PAST WORK AT [employer]. DENIES CHILDREN. SHORT MARRIAGE. H/R REG, NO MURMER NOTED. TELE REMOVED PER DR Rom LEUNG. LUNGS CLEAR, RESP EASY, UNLABORED. ON R/A. BT X4 LAST BM UNKNOWN BY PT. IN ATTENDS. ALSO IN POSY VEST FOR SAFETY. PULLING AT IV LINES. AND ATTEMPTING TO GET OUT OF BED. HIGH FALL RISK CANNOT FOLLOW DIRECTIONS. FORGETS INSTRUCTION. TALKING BROKEN THOUGHTS, SOME SENSE, SOME NONSENSE. ALSO IN WRIST RESTRAINTS FOR SAFETY. ARMS AND LEGS WEAK, MORE ON RT. ARMS MUCH DIFFICULTY TO TOUCH HEAD, NOSE, KNEES. GROSS MOTOR CONTROL. BUT EVENTUALLY GETS TO TOUCH INSTRUCTED. DR Rom LEUNG WITNESSED.
--- NOTE | 2018-04-19 17:27 | NUR ---
PT BROTHER WAS IN FOR A FEW HOURS THIS AFT. DID TALK SOME WITH HIM. CONTINUES TO MOVE WITH DIFFICULTY AND GROSS MOVEMENTS. DISCONNECTED MOVEMENTS. PTHAS SLEPT FOR MORE THAN AN HOUR SINCE BROTHER LEFT. DENIES PAIN. BEDIN LOW POSITION, CALL LITE IN REACH, BED ALARM ON FOR SAFETY. DID ALLOW PT TO HAVE ARMS OUTOF WRIST RESTRAINT WHILE BROTHER HERE. HE HELD HANDS TO KEEP FROM PULLING LINES. PLACED WRIST AT TIME OF LEAVING.
--- NOTE | 2018-04-19 17:37 | NUR ---
PT PLEASANTLY CONFUSED TODAY. SLEPT AFTER BROTHER LEFT THIS AFT. AWAKENS EASILY.STATES MAY BE IN TERESTED IN EATING THIS MARKO. DID GIVE AUTHORIZATION TO SPEAK TO BROTHER ABOUT HIS HEALTH. BED IN LOW POSITION, CALL LITE IN REACH, BED ALARM ON FOR SAFETY. VEST AND ARMS IN SOFT RESTRAINTS. PT CALM AT THIS TIME.
--- NOTE | 2018-04-19 18:47 | NUR ---
PT BECOMING MORE AGITATED. ORDERED ZYPREXA FROM PHARMACY.
--- NOTE | 2018-04-19 20:43 | NUR ---
PATIENT REFUSING VITALS AND MEDICATION.
--- NOTE | 2018-04-19 22:42 | NUR ---
CBG 124; HOSPITALIST NOTIFIED, DR ROSARIO AND REPORTS TO HOLD 40 UNITS OF LANTUS AND GIVEN LANTUS 20 UNITS X ONE.
--- NOTE | 2018-04-19 23:32 | NUR ---
PATIENT SWINGING LEGS OFF SIDE OF BED ACTIVATING BED ALARM. PATIENT IN SPIRNG VEST AND SOFT BILATERAL WRIST RESTRAINTS. PATIENT NOT FOLLOWING DIRECTIONS. WILL CONTINUE TO MONITOR.
--- NOTE | 2018-04-20 04:14 | NUR ---
SHIFT SUMMARY PATIENT CBG 124 AND 40 UNITS OF LANTUS HELD PER HOPSITALIST DR ROSARIO AND ORDERED 20 UNITS LANTUS X ONE. NO ACUTE CHANGES OBSERVED. PATIENT AGITATED AND CONFUSED T/O SHIFT. ZYPREXA IM 5 MG GIVEN WITH MINIMAL RESULTS. PATIENT PULLING AT ATTENDS, COVERS, PILLOWS, AND SWINGING LEGS OFF BED ACTIVATING BED ALARM. SPRING AND BILATERAL SOFT WRIST RESTRAINTS IN PLACE. REFUSED FIRST SET OF VITALS AND MEDICATION. CALL LIGHT IN REACH. BED IN LOWEST POSITION. WILL CONTINUE TO MONITOR UNTIL DAY SHIFT NURSE ASSUMES CARE.
[2018-04-20 05:29] LABS: BASOPHILS ABSOLUTE AUTO 0.14 K/mm3 (0.00-0.23); BASOPHILS PERCENT AUTO 1 % (0-2); EOSINOPHILS ABSOLUTE AUTO 0.16 K/mm3 (0.00-0.68); EOSINOPHILS PERCENT AUTO 1 % (0-6); Hematocrit 41.1 % (37.0-53.0); Hemoglobin 13.9 g/dL (13.5-17.5); IMMATURE GRAN ABSOLUTE AUTO 0.05 K/mm3 (0.00-0.10); IMMATURE GRAN PERCENT AUTO 0 % (0-1); LYMPHOCYTES ABSOLUTE AUTO 1.98 K/mm3 (0.84-5.20); LYMPHOCYTES PERCENT AUTO 13 % (21-46); MONOCYTES PERCENT AUTO 13 % (4-13); Mean Corpuscular HGB 31.4 pg (26.0-34.0); Mean Corpuscular HGB Conc 33.8 g/dL (31.5-36.5); Mean Corpuscular Volume 93 fL (80-100); Mean Platelet Volume 10.5 fL (9.1-12.4); NEUTROPHILS ABSOLUTE AUTO 10.63 K/mm3 (1.96-9.15); NEUTROPHILS PERCENT AUTO 72 % (41-73); Platelet Count 331 K/mm3 (150-400); RDW Coefficient Variation 11.9 % (11.7-14.2); RDW Standard Deviation 41.1 fL (35.1-46.3); Red Blood Cell Count 4.43 M/mm3 (4.30-5.90); White Blood Cell Count 14.86 K/mm3 (4.00-11.30)
[2018-04-20 05:58] LABS: Albumin, Blood 3.4 g/dL (3.4-5.0); Anion Gap 10 mmol/L (6-16); Blood Urea Nitrogen 56 mg/dL (8-24); Bun/Creatinine Ratio 21.3 (12.0-20.0); CO2, Blood 23 mmol/L (21-32); Calcium, Blood 9.4 mg/dL (8.5-10.1); Chloride, Blood 109 mmol/L (98-108); Creatinine, Blood 2.63 mg/dL (0.60-1.20); Glomerular Filtration Rate 26 (60-); Glucose, Blood 63 mg/dL (70-99); Phosphorus, Blood 2.8 mg/dL (2.5-4.9); Potassium, Blood 3.9 mmol/L (3.5-5.5); Sodium, Blood 142 mmol/L (136-145)
--- NOTE | 2018-04-20 16:55 | NUR ---
MRI OF HEAD COMPLETE, AWAITING RESULTS. PATIENT AMBULATED WITH A WALKER AND 1 PERSON ASSIST THIS MORNING. HE WAS ABLE TO SHOWER WITH HELP OF POINTER HELPER AND SAT IN A CHAIR FOR MEALS. THIS AFTERNOON HE HAS BEEN VERY LETHARGIC BUT AROUSEABLE. TELE PLACED, PATIENT CURRENTLY RUNNING SINUS RHYTHM IN THE 80S. PATIENT HAS TWO BROTHERS AND SEVERAL MEMBERS OF HIS ANABAPTIST THAT CHECK UP ON HIM. HE HAS BEEN PLEASANT AND COOPERATIVE WITH CARE. NEW IV PLACED IN RIGHT FOREARM, LEFT IV SITE WAS LEAKING AND REMOVED. WILL CONTINUE TO MONITOR
--- NOTE | 2018-04-21 03:09 | NUR ---
PATIENT RESTING IN BED. USING URINAL AT BEDSIDE WITH 1-2 PERSON ASSIST. CALL LIGHT IN REACH.
--- NOTE | 2018-04-21 04:33 | NUR ---
SHIFT SUMMARY PATIENT HAD NO ACUTE CHANGES OBSERVED THIS SHIFT. AXOX 3 AND SLOW TO RESPOND. DENIES PAIN, SOB, AND N/V. PIV REMAINS INTACT. TOOL AND DIE TECHNICIAN REPORTS NSR 76. TWO PERSON ASSIST TO BSC AND USES URINAL AT BS. CBG 210. VSS/AFEBRILE. SLEPT MOST OF THE SHIFT BUT AROUSABLE. CALL LIGHT IN REACH. BED IN LOWEST POSITION. WILL CONTINUE TO MONITOR UNTIL DAY SHIFT NURSE ASSUMES CARE.
[2018-04-21 05:46] LABS: Albumin, Blood 2.9 g/dL (3.4-5.0); Anion Gap 9 mmol/L (6-16); Blood Urea Nitrogen 59 mg/dL (8-24); Bun/Creatinine Ratio 21.1 (12.0-20.0); CO2, Blood 22 mmol/L (21-32); Calcium, Blood 8.9 mg/dL (8.5-10.1); Chloride, Blood 110 mmol/L (98-108); Glomerular Filtration Rate 24 (60-); Glucose, Blood 192 mg/dL (70-99); Potassium, Blood 3.9 mmol/L (3.5-5.5); Sodium, Blood 141 mmol/L (136-145)
--- NOTE | 2018-04-21 12:27 | NUR ---
Echocardiogram using 9.0ml of agitated saline plus 0.45ml of Definity contrast agents performed.
--- NOTE | 2018-04-21 15:12 | NUR ---
PATIENT WORKED WITH PHYSICAL THERAPY THIS MORNING. HE WAS DECENTLY ALERT AND ABLE TO ANSWER QUESTIONS APPROPRIATELY. BEFORE LUNCH THE PATIENT BECAME VERY LETHARGIC, HE IS AROUSABLE BUT ONLY OPENS HIS EYES FOR A FEW SECONDS BEFORE FALLING BACK TO SLEEP. HE WAS A HEAVY TWO PERSON ASSIST TO GET BACK INTO BED AFTER HE BECAME TIRED. HE HAD 3 VISITORS THIS AFTERNOON INCLUDING ROB HIS "NEXT OF KIN" LISTED IN THE H&P. ECHO PREFORMED THIS AFTERNOON, AWAITING RESULTS. NO ABNORMAL RHYTHM NOTED ON TELE. PATIENT'S HEART RATE REMAINS IN THE 70S TO 80S. PATIENT ABLE TO HAVE A BOWEL MOVEMENT THIS AM. BED ALARM IN PLACE WILL CONTINUE TO MONITOR.
--- NOTE | 2018-04-21 22:18 | NUR ---
HOSPITALIST DR ROSARIO DC'D LANTUS 40 UNITS AND ADDED LANTUS 20 UNITS AT BEDTIME. CBG 153.
--- NOTE | 2018-04-22 04:26 | NUR ---
SHIFT SUMMARY PATIENT LANTUS CHANGED FROM 40 UNITS TO [address] ROSARIO. CBG 153. AXOX 3 W/CONFUSION. PATIENT TRYING TO EXIT BED THIS SHIFT MULTIPLE TIMES ACTIVATING BED ALARM. PATIENT MORE CONFUSED THIS SHIFT. USES URINAL AT BED SIDE WITH TWO PERSON ASSIST. VSS/AFEBRILE. DENIES PAIN, SOB, AND N/V. PIV REMAINS INTACT. MEDICAL ASSISTANT CARDIOLOGY REPORTS NSR 70. CALL LIGHT IN REACH. BED IN LOWEST POSITION. WILL CONTINUE TO MONITOR UNTIL DAY SHIFT NURSE ASSUMES CARE.
[2018-04-22 05:40] LABS: Albumin, Blood 2.8 g/dL (3.4-5.0); Anion Gap 11 mmol/L (6-16); Blood Urea Nitrogen 69 mg/dL (8-24); Bun/Creatinine Ratio 22.3 (12.0-20.0); CO2, Blood 20 mmol/L (21-32); Calcium, Blood 8.7 mg/dL (8.5-10.1); Chloride, Blood 110 mmol/L (98-108); Glomerular Filtration Rate 21 (60-); Glucose, Blood 90 mg/dL (70-99); Phosphorus, Blood 4.4 mg/dL (2.5-4.9); Potassium, Blood 3.8 mmol/L (3.5-5.5); Sodium, Blood 141 mmol/L (136-145)
--- NOTE | 2018-04-22 15:55 | NUR ---
HE SAT UP MOST OF THE MORNING IN THE CHAIR. HE HAD A COGNITIVE EVALUATION AROUND BREAKFAST TIME. THE SPEECH THERAPIST SAID HE DID VERY POORLY IN THE EVALUATION. ROUNDED ON THE PATIENT. TELE DC'D. PATIENT WAS SO SLEEPY JUST BEFORE LUNCH, WE PRACTICALLY HAD TO LIFT HIM BACK TO BED. HE SLEPT THROUGH LUNCH AND THEN SOME. HE HAD 2 VISITORS BUT WAS UNABLE TO WAKE UP TO VISIT. HE ANSWERED ME BUT COULDN'T OPEN HIS EYES. HE HAD REPETITIVE RIGHT SCAPULA/SHOULDER MOVEMENT WHILE UP IN THE CHAIR. I DON'T SEE IT IN BED. HE HAS RIGHT-SIDED WEAKNESS. HE HAS VISUAL PROBLEMS BUT CAN'T REALLY TELL ME WHAT THEY ARE. WHILE DREAMING, HE TALKS OUTLOUD, NOTHING FRIGHTFUL. HE APPEARS COMFORTABLE.
--- NOTE | 2018-04-23 04:56 | NUR ---
CLIENT SUPPORT ADMINISTRATOR SUMMARY NO ACUTE CHANGES THIS SHIFT. PT AAOX2, FOLLOWS DIRECTION. PT CAN MAKE NEEDS KNOWN BUT DOES NOT USE CALL LIGHT FOR ASSISTANCE AND WILL ATTEMPT TO GET OUT OF BED ALONE. PT DOES USE URINAL WITH ASSIST. SLOW TO RESPOND AT TIMES. PT STILL HAVING DIFFICULTY MOVING R ARM BUT BEREAVEMENT COORDINATOR STRENGTHS ARE CLOSE TO EQUAL. STILL HAS SOME NOTICABLE R SIDE FACIAL DROOP. PT HAS BEEN PLEASANT THROUGH THE NIGHT. VSS, WILL CONTINUE TO MONITOR.
[2018-04-23 05:22] LABS: BASOPHILS ABSOLUTE AUTO 0.13 K/mm3 (0.00-0.23); BASOPHILS PERCENT AUTO 1 % (0-2); EOSINOPHILS ABSOLUTE AUTO 0.69 K/mm3 (0.00-0.68); EOSINOPHILS PERCENT AUTO 8 % (0-6); Hemoglobin 12.7 g/dL (13.5-17.5); IMMATURE GRAN ABSOLUTE AUTO 0.04 K/mm3 (0.00-0.10); IMMATURE GRAN PERCENT AUTO 0 % (0-1); LYMPHOCYTES ABSOLUTE AUTO 1.96 K/mm3 (0.84-5.20); LYMPHOCYTES PERCENT AUTO 22 % (21-46); MONOCYTES ABSOLUTE AUTO 0.95 K/mm3 (0.16-1.47); MONOCYTES PERCENT AUTO 11 % (4-13); Mean Corpuscular HGB 31.1 pg (26.0-34.0); Mean Corpuscular HGB Conc 33.4 g/dL (31.5-36.5); Mean Corpuscular Volume 93 fL (80-100); Mean Platelet Volume 10.2 fL (9.1-12.4); NEUTROPHILS PERCENT AUTO 59 % (41-73); Platelet Count 358 K/mm3 (150-400); RDW Coefficient Variation 11.8 % (11.7-14.2); RDW Standard Deviation 39.8 fL (35.1-46.3); Red Blood Cell Count 4.08 M/mm3 (4.30-5.90); White Blood Cell Count 9.07 K/mm3 (4.00-11.30)
[2018-04-23 05:48] LABS: Albumin/Globulin Ratio 0.7 (0.8-1.8); Bilirubin, Total 0.2 mg/dL (0.1-1.0); Bun/Creatinine Ratio 23.5 (12.0-20.0); Calcium, Blood 8.7 mg/dL (8.5-10.1); Creatinine, Blood 3.27 mg/dL (0.60-1.20); Globulin, Blood 4.3 g/dL (2.2-4.0); Phosphorus, Blood 4.3 mg/dL (2.5-4.9); Potassium, Blood 3.8 mmol/L (3.5-5.5); Total Protein, Blood 7.3 g/dL (6.4-8.2)
--- NOTE | 2018-04-23 15:21 | NUR ---
HE IS HAVING HIS RENAL US DONE NOW. HAS BEEN CONSULTED. RENAL LABS HAVE WORSENED GRADUALLY. HE HAS BEEN RESTLESS THIS AFTERNOON. HIS BROTHER AND [id number] JUST LEFT. THEY WILL BE BACK LATER IN THE WEEK HOPING TO BE ABLE TO GET [employer] KEYS TO GET IN HIS APT. TO TAKE CARE OF THINGS. WAITING FOR LEGAL ADVICE FROM RISK MANAGEMENT WHO IS NOT HERE TODAY ON THE HOLIDAY. HESAID YES TO BOTH HIS BROTHER AND HIS FRIEND TO GO TO HIS APT. TOGETHER.
--- NOTE | 2018-04-23 15:28 | NUR ---
PVR DURING RENAL US HE HAD >300 MLS IN HIS BLADDER. HE VOIDED 175 MLS AND HAD RESIDUAL OF 147 MLS.
--- NOTE | 2018-04-23 18:17 | NUR ---
HIS BROTHER VISITED TODAY AND COUMADIN WAS STARTED THIS EVENING. NO OTHER CHANGES. HE IS SITTING IN THE CHAIR FOR DINNER NOW. MOBILE LOUNGE DRIVER OR OPERATOR HELPS HIM EAT. HE HAS TROUBLE WITH COORDINATION AND HE CANNOT HOLD HIS HEAD UP. HIS CHIN IS ALWAYS DOWN ON HIS CHEST. NO CHANGE IN HIS COGNITION.
--- NOTE | 2018-04-24 05:01 | NUR ---
SHIFT SUMMARY PT HAS SLEPT FAIRLY WELL, SETS BED ALARM OFF WHEN SITTING UP IN BED. PT NEEDS URINAL ASSISTANCE AT BEDSIDE. IVF'S STARTED ON PT PER ORDER. PT VOIDING AROUND 150ML'S TO 200 ML'S EVERY COUPLE OF HOURS. NO ACUTE CHANGES NOTED, WILL CONTINUE TO MONITOR.
[2018-04-24 05:45] LABS: BASOPHILS ABSOLUTE AUTO 0.12 K/mm3 (0.00-0.23); BASOPHILS PERCENT AUTO 1 % (0-2); EOSINOPHILS ABSOLUTE AUTO 0.51 K/mm3 (0.00-0.68); EOSINOPHILS PERCENT AUTO 6 % (0-6); Hematocrit 35.5 % (37.0-53.0); Hemoglobin 11.5 g/dL (13.5-17.5); IMMATURE GRAN ABSOLUTE AUTO 0.03 K/mm3 (0.00-0.10); IMMATURE GRAN PERCENT AUTO 0 % (0-1); LYMPHOCYTES ABSOLUTE AUTO 1.88 K/mm3 (0.84-5.20); LYMPHOCYTES PERCENT AUTO 22 % (21-46); MONOCYTES ABSOLUTE AUTO 0.99 K/mm3 (0.16-1.47); MONOCYTES PERCENT AUTO 12 % (4-13); Mean Corpuscular HGB 31.1 pg (26.0-34.0); Mean Corpuscular HGB Conc 32.4 g/dL (31.5-36.5); Mean Platelet Volume 10.1 fL (9.1-12.4); NEUTROPHILS ABSOLUTE AUTO 4.97 K/mm3 (1.96-9.15); NEUTROPHILS PERCENT AUTO 59 % (41-73); Platelet Count 305 K/mm3 (150-400); RDW Coefficient Variation 11.9 % (11.7-14.2); RDW Standard Deviation 41.2 fL (35.1-46.3)
[2018-04-24 05:49] LABS: Mean Corpuscular Volume 96 fL (80-100)
[2018-04-24 05:59] LABS: Prothrombin Time Results 10.3 Sec (9.7-11.5)
[2018-04-24 06:06] LABS: Albumin, Blood 2.7 g/dL (3.4-5.0); Anion Gap 8 mmol/L (6-16); Blood Urea Nitrogen 71 mg/dL (8-24); Bun/Creatinine Ratio 24.7 (12.0-20.0); CO2, Blood 21 mmol/L (21-32); Calcium, Blood 8.3 mg/dL (8.5-10.1); Chloride, Blood 112 mmol/L (98-108); Creatinine, Blood 2.88 mg/dL (0.60-1.20); Glomerular Filtration Rate 23 (60-); Glucose, Blood 146 mg/dL (70-99); Phosphorus, Blood 3.8 mg/dL (2.5-4.9); Potassium, Blood 4.4 mmol/L (3.5-5.5); Sodium, Blood 141 mmol/L (136-145)
[2018-04-24] MEDS ORDERED: ASPI81CH PO (16:01)
[2018-04-24] MEDS ORDERED: INSULANPEN SC (16:02)
[2018-04-24] MEDS ORDERED: HUMALOG JU100 UNIT/1 SC (16:03)
[2018-04-24] MEDS ORDERED: ELIQUIS2.5 MG PO (16:04)
[2018-04-24] MEDS ORDERED: 1/2 NS 250ml250 ML IV (16:06)
--- NOTE | 2018-04-24 16:26 | NUR ---
REPORT CALLED TO DULCE AT [facility]. 20G TO ATTILA LEFT IN PLACE PER CASE MANAGEMENT AND [facility] FOR MAINTANANCE FLUIDS. SPOKE WITH STACEY FERREIRA WHO REPORTS SHE WILL CALL BROTHER AND NOTIFY HIM OF TRANSFER. PT DISCHARGED VIA [facility] W/C AT 1628.
--- NOTE | 2018-04-24 17:01 | NUR ---
PT BELONGINGS (WALLET, HOUSE KEYS, CHANGE, CELL PHONE, ETC.) LEFT LOCKED IN MED DRAWER WHEN PT VERONICA'Mayi. YAMILA DUDLEY NOTIFIED. PHONE NUMBER FOR SON IS NOT ACCURATE AND NUMBER PLACED ON BOARD HAS BEEN ERASED. BELONGINGS PLACED LOCKED IN [employer] OFFICE. [facility] THEY WILL NOTIFY FAMILY WHEN THEY COME IN.
== END 2018-04-24 16:28 | DRG 64 ==
LOC: MEDS 14:50
PROVIDERS: Family Medicine; Hospitalist; Internal Medicine Endocrinology, Diabetes & Metabolism; ADMIT Family Medicine
DX: I63.19 Cerebral infarction due to embolism of other precerebral artery (principal); I63.49 Cerebral infarction due to embolism of other cerebral artery; N17.9 Acute kidney failure, unspecified; M30.0 Polyarteritis nodosa; G81.91 Hemiplegia, unspecified affecting right dominant side; N18.4 Chronic kidney disease, stage 4 (severe); I12.9 Hypertensive chronic kidney disease with stage 1 through stage 4 chronic kidney disease, or unspecified chronic kidney disease; E11.22 Type 2 diabetes mellitus with diabetic chronic kidney disease; Z79.4 Long term (current) use of insulin; M10.9 Gout, unspecified; N20.9 Urinary calculus, unspecified; F03.90 Unspecified dementia, unspecified severity, without behavioral disturbance, psychotic disturbance, mood disturbance, and anxiety; E11.65 Type 2 diabetes mellitus with hyperglycemia; E78.5 Hyperlipidemia, unspecified; Z91.14 Patient's other noncompliance with medication regimen; R27.0 Ataxia, unspecified; R47.1 Dysarthria and anarthria
CPT/HCPCS: 36415; 70450; 70551; 76770; 80048; 80053; 80069; 82947; 83735; 83880; 84100; 85025; 85610; 85651; 86140; 92507; 92523; 92610; 93880; 97110; 97116; 97162; 97166; 97530; 97535; C8929; G8978; G8979; G8987; G8988; G8996; G8997; G8998; G9165; G9166; J1630; J1650; J1815; J2060; J7030; Q9957

== ENCOUNTER 2018-06-26 20:05 | Observation (INO) | payer OTHER ==
[~2018-06-26] VITALS: Ht 167.6 cm; Wt 79.4 kg
[~2018-06-26 20:05] MED LIST changes: +1/2 NS 250ml250 ML IV; +BASAGLAR K100 UNIT/1 SC; +ELIQUIS2.5 MG PO; +HUMALOG JU100 UNIT/1 SC; +INSULANPEN SC; +TRADJENTA5 MG PO
[2018-06-27 03:25] LABS: Albumin, Blood 3.2 g/dL (3.4-5.0); Albumin/Globulin Ratio 0.9 (0.8-1.8); Bilirubin, Total 0.3 mg/dL (0.1-1.0); Bun/Creatinine Ratio 24.5 (12.0-20.0); Calcium, Blood 8.2 mg/dL (8.5-10.1); Creatinine, Blood 2.37 mg/dL (0.60-1.20); Globulin, Blood 3.6 g/dL (2.2-4.0); Potassium, Blood 4.1 mmol/L (3.5-5.5); Total Protein, Blood 6.8 g/dL (6.4-8.2)
[2018-06-27 03:48] LABS: BASOPHILS ABSOLUTE AUTO 0.13 K/mm3 (0.00-0.23); BASOPHILS PERCENT AUTO 2 % (0-2); EOSINOPHILS ABSOLUTE AUTO 0.36 K/mm3 (0.00-0.68); EOSINOPHILS PERCENT AUTO 4 % (0-6); Hematocrit 27.7 % (37.0-53.0); Hemoglobin 9.2 g/dL (13.5-17.5); IMMATURE GRAN ABSOLUTE AUTO 0.03 K/mm3 (0.00-0.10); IMMATURE GRAN PERCENT AUTO 0 % (0-1); LYMPHOCYTES ABSOLUTE AUTO 1.85 K/mm3 (0.84-5.20); LYMPHOCYTES PERCENT AUTO 21 % (21-46); MONOCYTES ABSOLUTE AUTO 1.22 K/mm3 (0.16-1.47); MONOCYTES PERCENT AUTO 14 % (4-13); Mean Corpuscular HGB 31.3 pg (26.0-34.0); Mean Corpuscular HGB Conc 33.2 g/dL (31.5-36.5); Mean Corpuscular Volume 94 fL (80-100); Mean Platelet Volume 10.4 fL (9.1-12.4); NEUTROPHILS ABSOLUTE AUTO 5.28 K/mm3 (1.96-9.15); NEUTROPHILS PERCENT AUTO 59 % (41-73); Platelet Count 296 K/mm3 (150-400); RDW Coefficient Variation 12.7 % (11.7-14.2); RDW Standard Deviation 43.6 fL (35.1-46.3); Red Blood Cell Count 2.94 M/mm3 (4.30-5.90); White Blood Cell Count 8.87 K/mm3 (4.00-11.30)
[2018-06-27 08:20] LABS: Source, Urine Clean Catch
[2018-06-27 08:27] LABS: Bilirubin, Urine Neg (Neg); Blood, Urine 2+ (Neg); Glucose Qualitative, Urine 1+ (Neg); Ketones, Urine Neg (Neg); Leukocyte Esterase, Urine Neg (Neg); Nitrite, Urine Neg (Neg); Protein, Urine 3+ (Neg); Specific Gravity, Urine 1.015 (1.003-1.022); Urobilinogen, Urine NORM (Normal)
[2018-06-27 08:38] LABS: Appearance, Urine Clear (Clear); Color, Urine Yellow (P-Yellow)
[2018-06-27 08:46] LABS: Red Blood Cells, Urine 0-2 /hpf (0-2)
[2018-06-27 08:53] LABS: Bacteria Rare /hpf; Squamous Epithelial Cells Rare /hpf (Few); White Blood Cells, Urine Rare /hpf (0-5)
== END 2018-06-27 15:14 | disposition home or self-care (01) ==
LOC: ER 20:05 → EOR 20:06
PROVIDERS: ADMIT Emergency Medicine
DX: F01.51 Vascular dementia, unspecified severity, with behavioral disturbance (principal); R45.1 Restlessness and agitation; Z79.899 Other long term (current) drug therapy
CPT/HCPCS: 80053; 81001; 82947; 85025; 93005; 93010; 96372; 99285-25; G0378; J1815; J2060; Q3014

== ENCOUNTER → 2018-10-04 | Outpatient (CLI) | payer OTHER ==
[2018-10-05 14:40] LABS: Stool Occult Bld Immuno 1 Negative (NEGATIVE)
== END | disposition home or self-care (01) ==
LOC: LAB SHORT 15:08 → LAB 15:08
PROVIDERS: Family Medicine
DX: I10 Essential (primary) hypertension (principal); D64.9 Anemia, unspecified
CPT/HCPCS: G0328

== ENCOUNTER → 2018-10-05 | Outpatient (CLI) | payer OTHER ==
[2018-10-07 15:17] LABS: Creatinine, Urine Random 60.8 mg/dL (27.00-270.00)
[2018-10-07 15:50] LABS: Microalb/Creat Ratio UR, Rand 777.961 mg/g (0.000-30.000)
== END | disposition home or self-care (01) ==
LOC: LAB SHORT 02:50 → LAB 02:50
PROVIDERS: Family Medicine
DX: I10 Essential (primary) hypertension (principal)
CPT/HCPCS: 82043; 82570

== ENCOUNTER → 2019-02-04 | Outpatient (CLI) | payer OTHER ==
[2019-02-05 10:43] LABS: Source, Urine Clean Catch
[2019-02-05 12:10] LABS: Bilirubin, Urine Neg (Neg); Blood, Urine 5+ (Neg); Glucose Qualitative, Urine Neg (Neg); Ketones, Urine 1+ (Neg); Leukocyte Esterase, Urine 1+ (Neg); Nitrite, Urine Neg (Neg); Protein, Urine 4+ (Neg); Specific Gravity, Urine 1.015 (1.003-1.022); Urobilinogen, Urine NORM (Normal); pH, Urine 6.5 (5.0-8.0)
[2019-02-05 12:15] LABS: Appearance, Urine Bloody (Clear); Color, Urine Red (P-Yellow)
[2019-02-05 12:24] LABS: Red Blood Cells, Urine TNTC /hpf (0-2); Squamous Epithelial Cells Few /hpf (Few)
[2019-02-05 12:25] LABS: Amorphous Heavy (0-Heavy); Bacteria Few /hpf
== END | disposition home or self-care (01) ==
LOC: LAB SHORT 11:05 → LAB 11:05
PROVIDERS: Family Medicine
DX: N39.0 Urinary tract infection, site not specified (principal)
CPT/HCPCS: 81001; 87086